=== PATIENT | male | born 1945 | race Caucasian/White ===

== ENCOUNTER 2022-06-30 13:46 | Emergency (ER) | payer MEDICARE, OTHER ==
[2022-06-30 14:47] LABS: BASOPHIL 0.2 % (0-2); EOSINOPHIL 0.2 % (0-7); HCT 44.7 % (42.0-52.0); HGB 15.4 g/dl (13.2-18.0); LYMPHOCYTE 16.1 % (15-48); MCH 32.4 pg (25.0-31.0); MCHC 34.5 g/dL (32.0-36.0); MCV 94.1 fL (78.0-100.0); MPV 11.1 fL (6.0-9.5); NRBC 0; PLT 129 K/uL (150-400); RBC 4.75 M/uL (4.70-6.00); WBC 4.3 K/uL (4.0-10.5)
[2022-06-30 15:22] LABS: BUN/CREAT RATIO (CALC) 9.2 RATIO; CREATININE 1.09 mg/dL (0.67-1.17); POTASSIUM 4.3 mmol/L (3.5-5.1)
[2022-06-30 15:37] LABS: LACTIC ACID 1.1 mmol/L (0.4-1.9)
[2022-06-30 16:54] LABS: BILIRUBIN NEGATIVE (NEGATIVE); BLOOD 1+ Ery/uL (NEGATIVE); CLARITY CLEAR (CLEAR); COLOR YELLOW (YELLOW); GLUCOSE (U) NORMAL (NORMAL); LEUKOCYTES NEGATIVE Leu/uL (NEGATIVE); NITRITE NEGATIVE (NEGATIVE); PROTEIN TRACE (LOW) mg/dL (NEGATIVE); UROBILINOGEN 0.2 mg/dL (0.2-1.0); pH 5.5 (5.0-9.0)
[2022-06-30 17:04] LABS: URINARY RBC RARE
[2022-06-30 17:05] LABS: BACTERIA TRACE
== END 2022-06-30 18:59 | disposition home or self-care (01) ==
LOC: FER 13:46
PROVIDERS: Nurse Practitioner Family
DX: U07.1 COVID-19 (principal); E86.0 Dehydration; I10 Essential (primary) hypertension; E03.9 Hypothyroidism, unspecified; Z88.0 Allergy status to penicillin; Z79.890 Hormone replacement therapy; Z79.899 Other long term (current) drug therapy
CPT/HCPCS: 36415; 71045; 80048; 81001; 83605; 84145; 85025; 87040; 93005; J2405; J7030